=== PATIENT | male | born 1980 | race Caucasian/White ===

== ENCOUNTER 2019-01-15 09:04 | Emergency (ER) | payer OTHER, MEDICAID ==
[~2019-01-15] VITALS: Ht 172.7 cm; Wt 81.7 kg
[2019-01-15] MEDS ORDERED: NAPROSYN500 MG PO (09:55)
== END 2019-01-15 09:50 | disposition home or self-care (01) ==
LOC: ED 09:04
DX: M79.645 Pain in left finger(s) (principal); F17.200 Nicotine dependence, unspecified, uncomplicated
CPT/HCPCS: 99283